=== PATIENT | male | born 2005 | race Caucasian/White ===

== ENCOUNTER 2024-06-13 11:26 | Emergency (ER) | payer BC, SELFPAY ==
--- NOTE | ~2024-06-13 | CT_ITS ---
EXAMINATION: CT abdomen pelvis w con DATE: 06/13/2024 14:23 INDICATION: Abdominal pain TECHNIQUE: Computed tomography (CT) of the abdomen and pelvis was performed with 100 mL Omnipaque-350 intravenous contrast. Automated exposure control and iterative reconstruction technique were employe d. The dose-length product was 326.12 mGy-cm. COMPARISON: None FINDINGS: Lung bases are clear. Heart size normal. No pericardial or pleural effusion. Liver, gallbladder, sple en, pancreas, bilateral adrenal glands and left kidney are normal. There are couple cysts at the lowe r pole the right kidney measuring up to 1.1 cm. Suture line along the tip the cecum likely related to prior appendectomy. No abnormal bowel wall thickening or obstruction. Bladder is normal. No free int raperitoneal gas or fluid. No pathologically enlarged abdominal or pelvic lymphadenopathy. Mild lumba r and lower thoracic spondylosis. IMPRESSION: 1. No acute intra-abdominal/pelvic process. Reviewed, dictated and finalized at location A. ND CRUSHER
[2024-06-13 11:29] VITALS: BP 105/90; PULSE 130; RESP 20; TEMP 36.4; O2SAT 98
[2024-06-13] MEDS: SODIUM CHLORIDE 0.9% IV 1,000 ML 999 ML IV CONT ×2 (11:46→14:29)
[2024-06-13] MEDS: ONDANSETRON INJ 4 MG/2 ML VIAL IV PUSH (11:47)
[2024-06-13] MEDS: FAMOTIDINE 20 MG/2 ML VIAL IV PUSH (11:48)
[2024-06-13] MEDS: DICYCLOMINE HCL INJ 20 MG/2 ML VIAL IM (11:57)
--- NOTE | 2024-06-13 12:06 | ED_ITS ---
HPI - Nausea/Vomiting/Diarrhea General Chief complaint: Nausea/Vomiting/Diarrhea Stated complaint: N/V/D Time Seen by Provider: 06/13/24 11:28 History of Present Illness HPI Narrative: Patient is a 18-year-old male who presents to the ER with nausea, vomiting and diarrhea. He reports the symptoms started last night around midnight. Patient went to urgent care earlier today and they advised him to come here because of his tachycardia. He endorses decreased urine output. Patient reports he has a history of ADHD, appendectomy, and anxiety. He reports he wants to use cannabis regularly but has not used in approximately 3 months. Patient denies chest pain, shortness of breath, recent fevers, urinary symptoms. Related Data Home Medications ?Medication ?Instructions ?Recorded ?Confirmed ?Last Taken ?Type dextroamphetamine-amphetamine 15 15 mg PO DAILY 06/13/24 06/13/24 Unknown History mg tablet (Adderall) Allergies Allergy/AdvReac Type Severity Reaction Status Date / Time No Known Allergies Allergy Verified 06/13/24 11:39 Review of Systems 2 Review of Systems: All systems reviewed & are unremarkable except as noted in HPI and below Exam 2 Narrative: GENERAL: Ill-appearing, well-nourished, non-toxic, in no acute distress. HEAD: Normocephalic, atraumatic. NECK: Supple. No adenopathy, no masses. RESPIRATORY: Airway patent, respirations nonlabored. Clear to auscultation bilaterally, no rales, rhonchi, wheezing. CARDIOVASCULAR: Tachycardia without murmurs, rubs, or gallops. Peripheral pulses 2+ and equal bilaterally. ABDOMINAL: Soft, nontender, nondistended, no hepatosplenomegaly. Normoactive BS. MUSCULOSKELETAL: Moves all extremities. Strength/ROM intact without gross deformities. SKIN: Warm, dry, pallor. No rashes. NEURO: A&O X3. Speech clear. Cranial nerves II-XII grossly intact. Steady gait. No ataxic movements. PSYCHIATRIC: Appropriate mood and affect. Normal interaction. Course Vital Signs Vital signs: Vital Signs Temperature 36.4 C 06/13/24 11:29 Pulse Rate 130 H 06/13/24 11:29 Respiratory Rate 20 06/13/24 11:29 Blood Pressure 105/90 06/13/24 11:29 Pulse Oximetry 98 06/13/24 11:29 Oxygen Delivery Room Air 06/13/24 11:29 Temperature 36.8 C 06/13/24 14:30 Pulse Rate 110 H 06/13/24 14:30 Respiratory Rate 14 06/13/24 14:30 Blood Pressure 119/78 06/13/24 14:30 Pulse Oximetry 100 06/13/24 14:30 Oxygen Delivery Room Air 06/13/24 11:29 MDM - Nausea/Vomiting/Diarrhea MDM Narrative Medical decision making narrative: Patient is a 18-year-old male who presents to the ER with nausea, vomiting and diarrhea. He reports the symptoms started last night around midnight. Patient went to urgent care earlier today and they advised him to come here because of his tachycardia. He endorses decreased urine output. Patient reports he has a history of ADHD, appendectomy, and anxiety. He reports he wants to use cannabis regularly but has not used in approximately 3 months. Patient denies chest pain, shortness of breath, recent fevers, urinary symptoms. Labs Ordered: CBC, CMP, UA, UDS, COVID/flu/RSV, CK, lipase Imaging Ordered: CT abdomen pelvis Results: Patient's abdominal CT scan shows Lung bases are clear. Heart size normal. No pericardial or pleural effusion. Liver, gallbladder, spleen, pancreas, bilateral adrenal glands and left kidney are normal. There are couple cysts at the lower pole the right kidney measuring up to 1.1 cm. Suture line along the tip the cecum likely related to prior appendectomy. No abnormal bowel wall thickening or obstruction. Bladder is normal. No free intraperitoneal gas or fluid. No pathologically enlarged abdominal or pelvic lymphadenopathy. Mild lumbar and lower thoracic spondylosis. Medications ordered: Bentyl, Pepcid, 2L normal saline IV bolus, Zofran Diagnosis: Gastroenteritis, dehydration Patient Education/Shared MDM: Results shared with patient. Patient endorses significant relief following medication administration. Strict return precautions were given to patient. Patient will be discharged with prescription for Bentyl and Zofran. He will be strongly encouraged to maintain an adequate hydration status upon discharge. Patient and his significant other her eyes understanding and are in agreement with plan. Differential Diagnosis Differential diagnosis: Likely food poisoning, gastroenteritis, drug-induced nausea and vomiting and dehydration Lab Data Attestation: I reviewed the patient's lab results. 06/13/24 12:01 06/13/24 12:01 Labs: Lab Results 06/13/24 06/13/24 Range/Units 12:01 12:10 WBC 18.4 H (4.5-10.0) K/mm3 RBC 5.19 (4.6-6.20) M/mm3 Hgb 16.7 (14.0-18.0) g/dL Hct 47.3 (42.0-52.0) % MCV 91.1 (80-100) fl MCH 32.2 (26-34) pg MCHC 35.3 (32-36) g/dl RDW 12.0 (11.5-14.5) % Plt Count 257 (150-375) k/mm3 MPV 10.1 (7.4-10.4) fl Immature Gran % (Auto) 0.4 (0-0.5) % Neut % (Auto) 87.0 H (45.5-73.1) % Lymph % (Auto) 2.0 L (18.3-44.2) % [place] % (Auto) 3.3 (2.6-8.5) % Eos % (Auto) 7.1 H (0-4.4) % Baso % (Auto) 0.2 (0.2-1.2) % Lymph # (Auto) 0.37 L (0.9-3.2) K/mm3 [place] # (Auto) 0.6 (0.1-0.6) K/mm3 Eos # (Auto) 1.3 H (0-0.3) K/mm3 Baso # (Auto) 0.0 (0.0-0.1) K/mm3 Abs Immat Gran (auto) 0.07 H (0.00-0.031) K/mm3 Absolute Neuts (auto) 16.0 H (1.3-6.7) K/mm3 Absolute Nucleated RBC 0.000 (0.0-0.012) K/mm3 Nucleated RBC % 0.0 (0.0-0.2) % Platelet Estimate Adequate (Adequate) Schistocytes None seen Sodium 144 (137-145) mmol/L Potassium 4.0 (3.4-5.0) mmol/L Chloride 108 H (98-107) mmol/L Carbon Dioxide 16 L (22-30) mmol/L Anion Gap 20 H (4-12) mmol/L BUN 15 (9-20) mg/dL Creatinine 0.90 (0.7-1.3) mg/dL Estim Creat Clear Calc 126 ml/min Estimated GFR > 60 (59 - ) Glucose 151 H (65-110) mg/dL Calcium 9.6 (8.4-10.2) mg/dL Total Bilirubin 1.5 H (0.2-1.3) mg/dL AST 25 (17-59) U/L ALT 28 (6-50) U/L Alkaline Phosphatase 107 (38-126) U/L Total Creatine Kinase 86 (55-170) U/L Total Protein 8.0 (6.3-8.2) g/dL Albumin 5.1 (3.5-5.1) g/dL Lipase 42 (23-300) U/L Urine Color Dark yellow (Yellow) Urine Appearance Turbid H (Clear) Urine pH 6.0 (5.0-9.0) Ur Specific [place] 1.034 (1.001-1.035) Urine Protein 2+ H (Negative) mg/dL Urine Glucose (UA) Negative (Negative) mg/dL Urine Ketones 1+ H (Negative) mg/dL Ur Blood (Man) Negative (Negative) Urine Nitrate Negative (Negative) Urine Bilirubin 1+ H (Negative) Urine Urobilinogen 1.0 (<2.0) mg/dL Leukocyte Esterase Rfl Trace H (Negative) JAS/UL Urine RBC 0-2 (0-2) /hpf Urine WBC 0-5 (0-3) /hpf Ur Squamous Epith Cells None seen (Few) /hpf Urine Bacteria None seen /hpf Urine Casts 3-5 Urine Opiates Screen Negative (Negative) Urine Methadone Screen Negative (Negative) Ur Barbiturates Screen Negative (Negative) Ur Phencyclidine Scrn Negative (Negative) Ur Amphetamine Screen Negative (Negative) U Benzodiazepines Scrn Negative (Negative) Urine Cocaine Screen Negative (Negative) U Cannabinoids Screen Positive A (Negative) Influenza A (RT-PCR) Negative (Negative) Influenza B (RT-PCR) Negative (Negative) RSV (RT-PCR) Negative (Negative) SARS-CoV-2 RNA (RT-PCR) Negative (Negative) Imaging Data Attestation: I personally reviewed and interpreted this imaging study as follows: Radiologist's impression: Impressions Abdomen/Pelvis CT 06/13/24 14:26 IMPRESSION: 1. No acute intra-abdominal/pelvic process. Discharge Plan Discharge Clinical Impression: Gastroenteritis, Dehydration Patient Disposition: Home, Self-Care Condition: Stable Instructions: Antibiotic Form, Dehydration (ED), Acute Nausea and Vomiting (ED) Additional Instructions: Please return to the ER with an worsening symptoms. Follow-up with primary care provider in the next 2-3 days. Take all medications as prescribed. Patient Language: Pashto Prescriptions: New dicyclomine 10 mg capsule 10 mg PO QID Qty: 14 0RF ondansetron 4 mg tablet,disintegrating 4 mg PO Q8H PRN (Reason: nausea and vomiting) Qty: 10 0RF No Action dextroamphetamine-amphetamine [Adderall] 15 mg tablet 15 mg PO DAILY Follow-up/Referrals: PHYSICIAN NOT ON STAFF,NONSTAFF [Non-Staff] - Time of Disposition: 14:47
--- NOTE | 2024-06-13 12:06 | ECG_ITS ---
Test Date: 2024-06-13 12:23:07 Measurements Intervals [place] Rate: 111 P: 65 WI: 135 QRS: 66 QRSD: 92 T: 35 QT: 310 QTc: 422 Interpretive Statements SINUS TACHYCARDIA ABNORMAL RHYTHM ECG No previous ECG available for comparison Electronically Signed On 06-13-2024 18:02:12 [employer] DEPARTMENT CHAIR by Dalia Fontaine M.D.
[2024-06-13 12:10] LABS: Basophils Percent Auto 0.2 % (0.2-1.2); Eosinophils Absolute Auto 1.3 K/mm3 (0-0.3); Eosinophils Percent Auto 7.1 % (0-4.4); Hematocrit 47.3 % (42.0-52.0); Hemoglobin 16.7 g/dL (14.0-18.0); Immature Granulocyte Absolute 0.07 K/mm3 (0.00-0.031); Immature Granulocyte Percent A 0.4 % (0-0.5); Lymphocytes Absolute Auto 0.37 K/mm3 (0.9-3.2); Mean Corpuscular HGB Conc 35.3 g/dl (32-36); Mean Corpuscular Hemoglobin 32.2 pg (26-34); Mean Corpuscular Volume 91.1 fl (80-100); Mean Platelet Volume 10.1 fl (7.4-10.4); Monocytes Absolute Auto 0.6 K/mm3 (0.1-0.6); Monocytes Percent Auto 3.3 % (2.6-8.5); Platelet Count Result 257 k/mm3 (150-375); Red Blood Count 5.19 M/mm3 (4.6-6.20); White Blood Count 18.4 K/mm3 (4.5-10.0)
[2024-06-13 12:18] LABS: Alanine Aminotransferase 28 U/L (6-50); Albumin Level 5.1 g/dL (3.5-5.1); Alkaline Phosphatase 107 U/L (38-126); Anion Gap 20 mmol/L (4-12); Aspartate Amino Transferase 25 U/L (17-59); Bilirubin,Total 1.5 mg/dL (0.2-1.3); Blood Urea Nitrogen 15 mg/dL (9-20); Calcium 9.6 mg/dL (8.4-10.2); Carbon Dioxide 16 mmol/L (22-30); Chloride 108 mmol/L (98-107); Estimated CRCL calculation 126 ml/min; Estimated Glomerular Filt Rate > 60; Glucose 151 mg/dL (65-110); Lipase 42 U/L (23-300); Sodium 144 mmol/L (137-145)
[2024-06-13 12:22] LABS: Add Urine Microscopic? YES; Appearance Urine Turbid (Clear); Bacteria Urine None Seen /hpf; Bilirubin Urine 1+ (Negative); Blood Urine Negative (Negative); Color Urine Dark Yellow (Yellow); Glucose Urine UA Negative (Negative); Ketones Urine 1+ mg/dL (Negative); Leukocyte Esterase Ur Trace LEU/UL (Negative); Nitrate Urine Negative (Negative); Protein Urine 2+ mg/dL (Negative); RBC Urine 0-2 /hpf (0-2); Specific Grav Ur 1.034 (1.001-1.035); Squamous Epithelial Cell Urine None Seen /hpf (Few); WBC Urine 0-5 /hpf (0-3)
[2024-06-13 12:33] LABS: Platelet Estimate Adequate (Adequate); Schistocytes None Seen
[2024-06-13 12:39] LABS: Amphetamine Screen Urine Negative (Negative); Barbiturate Screen Urine Negative (Negative); Benzodiazepines Screen Urine Negative (Negative); Cannabinoid Screen Urine Positive (Negative); Cocaine Screen Urine Negative (Negative); Methadone Screen Urine Negative (Negative); Opiate Screen Urine Negative (Negative); Phencyclidine Screen Urine Negative (Negative)
[2024-06-13 12:44] LABS: Influenza A QL RT-PCR Negative (Negative); Influenza B QL RT-PCR Negative (Negative); RSV RNA, RT-PCR Negative (Negative); SARS-CoV-2 RNA PCR Negative (Negative)
[2024-06-13 14:15] LABS: Creatine Kinase 86 U/L (55-170)
[2024-06-13 14:30] VITALS: BP 119/78; PULSE 110; RESP 14; TEMP 36.8; O2SAT 100
--- OUTSIDE RECORDS SUMMARY | 2024-06-16 13:08 | XMS_ITS | Clinical Summary ---
Author Organization [facility] Address [address] [place] [address] Care Team Providers Care Strainer Tender Name Role Phone Oneyda Marc MD Unavailable [phone] Robert Holman MD Primary Care Provider [phone] Robert Holman MD Unavailable [phone] Source Comments [facility],non-[facility] Affiliates and Associated Physician Practices is amultiple site organization consisting of ambulatory clinics and hospital sitesin [place], [place], [place] and [place]. This disclosure is being madepursuant to the Care Everywhere program and may not contain all information available regarding this patient. Last updated 18.[facility] [employer] Allergies No known active allergies Medications * Be aware that medications may not be up to date on this document. Alwaysverify current medications with the patient. Medication Sig Dispensed Refills Start Date End Date Status escitalopram (Lexapro) 10 MG tablet TAKE 1 TABLET BY MOUTH DAILY 90 tablet 1 4 Active escitalopram (Lexapro) 5 MG tablet TAKE 1 TABLET BY MOUTH DAILY FOR MAJOR DEPRESSION 90 tablet 1 4 Active amphetamine-dextr oamphetamine XR 24hr (Adderall XR) 15 MG capsuleIndication s:Attention deficit hyperactivity disorder (ADHD), combined type Take 1 (one) capsule by mouth every morning 30 capsule 5 Active hydrOXYzine HCl (Atarax) 25 MG tablet TAKE 1 TABLET BY MOUTH 3 TIMES DAILY NEEDED FOR ANXIETY 270 tablet 3 5 Active hydrOXYzine HCl (Atarax) 25 MG tabletIndications :Anxiety Take 1 (one) tablet by mouth 3 times daily as needed Reasons: Feeling Anxious 270 tablet 3 3 06/03/19 25 Discontinued amphetamine-dextr oamphetamine XR 24hr (Adderall XR) 15 MG capsuleIndication s:Attention deficit hyperactivity disorder (ADHD), combined type Take 1 (one) capsule by mouth every morning 30 capsule 4 05/30/19 25 Discontinued(Svetlana ashraf) Active Problems Problem Noted Date Diagnosed Date MDD (major depressive disord er), recurrent episode, moderate 10/30/2022 Assessment & Plan (01/04/2024 3:25 PM CDT): Currently at goal on Lexapro, continue Lexapro Marijuana use 10/30/2022 Assessment & Plan (01/04/2024 3:26 PM CDT): Continue to monitor. Assessment & Plan (10/30/2022 10:32 AM CDT): Occasional marijuana use, continue to monitor. Nicotine dependence due to vaping tobacco produc t 10/30/2022 Assessment & Plan (10/30/2022 10:34 AM CDT): CURRENT USE: Current everyday vape use COMPLICATIONS: None currently CURRENT MEDICATIONS (IF APPLICABLE) AND PLAN: No medication, discussed importance of cutting back and discussed tapering down. GENERAL SUGGESTIONS FOR HOW TO TAPER & WEAN OFF VAPES (replace cigarettes and smoking with appropriate vaping terms): 1. Pick a goal Quit Day, it can be all at once or a slow taper 2. If you plan to taper, count out daily cigarettes in the AM and reduce by one cigarette per day every 3-5 days 3. You will know soon what cigarettes are the most important during the day, cut these out last 4. Stop smoking the whole cigarette, smoke only half of it when able 5. Only smoke outside and put cigarettes someplace far away so it is more effort to go and smoke, you will smoke less if they are harder to get to 6. Consider buying cigarettes that you do not like as much, you will smoke fewer of them 7. Part of stopping is the oral component to the cigarette use, when craving try gum or a hard candy, if this does not seem to help you may need nicotine gum or a lozenge 8. For some patients, it may be beneficial to trial a medication such as Chantix if tapering cigarettes or nicotine replacement is not enough. RESOURCES: - [place] [employer] Quitline - Phone: 1(332) QUIT-NOW [ ] - Website: https://www.SovexnoZurn.net/mve/quitnow?qnclient=[place] FOLLOW-UP: Next visit Between 3 minutes and 10 minutes was spent counseling patient regarding tobacco cessation as detailed above. ([id number]) Wellness examination 10/30/2022 Assessment & Plan (01/04/2024 3:25 PM CDT): Teresa is a well appearing 18 year old male who presents today for a wellness exam: BMI >30? No, BMI is Body mass index is 25.90 kg/m??. TdaP: Up-to-date If smoker, asthma, COPD, DM then Pneumovax 23: N/A Cholesterol screening: Ordered today Hep C screening: Hepatitis C Antibody Date Value Ref Range Status 10/30/2022 Non Reactive Non Reactive Final Comment: Non Reactive - Antibodies to Hepatitis C virus (HCV) were no t detected, result does not exclude early acute HCV infection. FASTING Depression screening: Normal, screen annually Smoking Status: Current everyday vape use Alcohol Use: Does not abuse Assessment & Plan (10/30/2022 10:31 AM CDT): Teresa is a well appearing 16 year old male who presents today for a wellness exam: BMI >30? No, BMI is Body mass index is 26.34 kg/m??. TdaP: Up-to-date If smoker, asthma, COPD, DM then Pneumovax 23: N/A Cholesterol screening: Recent Labs Component Name 03/04/19 1629 HDL 44 LDL 75 Ordered today Hep C screening: No results found for: HCV Depression screening: Normal, screen annually Smoking Status: Current everyday vape use Alcohol Use: Does not abuse Impulse control disorder 06/27/2019 Generalized anxiety disorder 06/27/2019 Assessment & Plan (01/04/2024 3:26 PM CDT): Currently at goal on Lexapro Assessment & Plan (10/30/2022 10:32 AM CDT): STATUS: stable MEDICATION CHANGES: None today NEW/CURRENT MEDICATIONS: Hydroxyzine 25 mg as needed up to 3 times per day and Escitalopram (Lexapro) 15 mg daily TIPS TO IMPROVE ANXIETY SYMPTOMS: - Exercise is a great way to reduce anxiety related symptoms. The current recommendation by most medical payment poster is 30 minutes per day 5 days per week. However, any exercise will make a big difference! - If not participating already, I highly recommend counseling as a way to help work through your anxiety. There are both in-person and online options available. - Avoid/limit alcohol and caffeine consumption as they can be triggers for some people - STOP SMOKING! Nicotine significantly worsens anxiety - Avoid use of recreational drugs - Both guided and unguided meditation has been shown to reduce anxiety symptoms. There are multiple resources/videos/apps online and on most X[employer]ia phones. The [employer] jennie is a personal favorite of mine along with many free meditation videos on [employer] - Eat healthy, I recommend modeling your diet around the Mediterranean Diet - Get plenty of rest. Anxiety worsens when you are sleep deprived. - Keep a journal and identify triggers. Once you identify them try to understand why these triggers elicit an anxious response. This process goes well with counseling! - Socialize with those who make you happy! Don't let your anxiety isolate you from loved ones or activities you enjoy. - Finally, don't be too hard on yourself. It's easy to get frustrated when you have worsening or a relapse of symptoms. Understand that anxiety takes time to improve and waxes/wanes during that time. Keep the end goal in site and learn from your experiences (both positive and negative). FOLLOW-UP: Next visit Acne vulgaris 07/04/2017 Overview (07/09/2017): [facility] Attention deficit hyperactiv ity disorder (ADHD), combined type 07/22/2010 Assessment & Plan (01/04/2024 3:26 PM CDT): Not at goal, restarted patient on Adderall. Follow-up a few months for recheck. Assessment & Plan (10/30/2022 10:33 AM CDT): Previously on medication for this. Patient will be starting school in the near future and may want to get back on the medication. He will schedule follow-up to discuss this. Resolved Problems Problem Noted Date Diagnosed Date Resolved Date Molluscum contagiosum 07/04/20172022 Overview (07/09/2017): [facility] Acute sinusitis 06/22/2012 10/30/2022 Overview (06/22/2012): 06/22/12 Attention deficit hyperactiv ity disorder (ADHD) 04/23/2010 02/09/2015 Overview (04/01/2015): Strep pharyngitis 04/17/2010 10/30/2022 Overview (02/08/2018): 04/17/10,08/09/12,05/13/13,02/06/18 seen in urgent care Acute otitis media, right 11/19/2009 ACUTE OTITIS MEDIA, 06/27/2009 10/31/19 23 Overview (07/22/2010): 11/16/09 right, 07/21/10 RAD (reactive airway disease) 06/27/2009 12/31/2020 Rhinorrhea 04/23/2009 02/09/2015 Injury, other and unspecified, finger 10/08/2008 02/09/2015 Anxiety 10/30/2022 Encounters Date Type Department Care Team Description 06/03/[address] [place] [address] Robert Holman MD Refill Request 05/30/[address] [address] Robert Holman MD MEDICATION REFILL from Last 3 Months Immunizations Name Administration Dates Next Due Covid Moderna primary monova lent 12+ yr 0.5mL 09/13/2020,08/16/2020 DTAP/IPV 08/23/2009 DTaP VACCINE IM (6wk-6yrs) 03/07/2005,,04/10/2004,01/31 FLU VACCINE TRI IIV3 SPLIT P F IM (FLUVIRIN) 01/31/2013 HEP A PEDS 2 DOSE 08/23/2009,12/01/2005 HEP B VACCINE, PED/ADOL 03/07/2005,04/10/2004, HIB BOOSTER 03/07/2005,04/10/2004,02/01/2004 Human Papilloma Virus Nineva lent Vaccine 04/07/2016 Human Papilloma Virus Dimas valent Vaccine 02/09/2015 INFLUENZA VACCINE 04/04/2005,03/07/2005 INFLUENZA VACCINE, QUADR. (F LUZONE; FLULAVAL; FLUARIX; AFLURIA QUADRIVALENT; 6MO+), 0.5 ML (IIV4) 05/05/2022,03/31/2020,03/04/2019,05/28,04/07/2016 Influenza Nasal 02/17/2011 MENINGOCOCCAL B RECOMBINANT, 2 OR 3 DOSE, IM 12/31/2020,12/23/2019 MENINGOCOCCAL CONJUGATE (MCV4P) 12/23/2019,02/09 MMR 08/23/2009,12/20/2004 PNEUMOCOCCAL CONJ, PEDS 03/07/2005,06/10,04/10/2004,09/09 /2004 POLIO IPV 06/10/2004,04/10/2004,02/01/2004 TDAP (7yrs+) 02/09/2015 VARICELLA 08/23/2009,12/20/2004 Social History Tobacco Use Types Packs/Day Years Used Date Smoking Tobacco: Never Smokeless Tobacco: Never Tobacco Cessation:Counseling Given: Not Answered Alcohol Use Standard Drinks/Week Comments Yes 12 (1 standard drink = 0.6 oz pu re alcohol) Occ PHQ-2 Answer Date Recorded Patient Health Questionnaire-2 Score 0 01/04/2024 Sex and Gender Information Value Date Recorded Sex Assigned at Male 10/30/2022 10:05 AM CDT Gender Identity Not on file Sexual Orientation Not on file Last Filed Vital Signs Vital Sign Reading Time Taken Comments Blood Pressure 108/72 01/04/2024 2:46 PM CDT Pulse 69 01/04/2024 2:46 PM CDT Temperature 36.9 ??C (98.4 ??F) 12/31/2020 3:01 PM CD T Respiratory Rate 14 10/30/2022 10:15 AM CDT Oxygen Saturation 99% 01/04/2024 2:46 PM CDT Inhaled Oxygen Concentration - - Weight 86.6 kg (191 lb) 01/04/2024 2:46 PM CDT Height 182.9 cm (6') 01/04/2024 2:46 PM CDT Body Mass Index 25.9 01/04/2024 2:46 PM CDT Plan of Treatment Upcoming Encounters Date Type Department Care Team (Late st Contact Info) Description 07/06/2024 2:40 PM CUSTOMS COMPLIANCE MANAGER Office Visit [facility] [address] [place] [address] Robert Holman MD [address] [place] [address] Health Maintenance Due Date Last Done Comments COVID-19 VACCINE (2023-2 5 season) 2024 09/13/2020, 08/16/2020 INFLUENZA VACCINE (#1) 2024 2, 03/31/2020, 03/04/2019, Additional history exists DEPRESSION SCREENING 05/25/2024 01/04/2024, 10/31/19 23 DTAP/TDAP/TD VACCINES (7 - T d or Tdap) 02/09/2025 02/09/2015, 08/23/2009, 03/07/2005, Additional history exists ZOSTER VACCINE (1 of 2) 12/01/2053 HEPATITIS B VACCINE Completed 03/07/2005, 04/10/2004, 02/01/2004 HIB VACCINE Completed 03/07/2005, 03/25, 02/01/2004 PNEUMOCOCCAL VACCINE Completed 03/07/2005, 06/10/2004, 04/10/2004, Additional history exists HPV VACCINE Completed 04/07/2016, 02/09/2015 MENINGOCOCCAL VACCINE Completed 12/23/2019, 015 MENINGOCOCCAL (Group B) VACCINE Completed , 12/23/2019 HEPATITIS C SCREENING Completed 10/30/2022 HIV SCREENING Completed 10/30/2022 Goals Goal Patient Goal Type Associated Problems Recent Progress Patient-Stated? Author Use safety retraint in car Lifestyle On track( 021 3:03 PM CDT) No Jessica Delgado MA Procedures Procedure Name Priority Date/Time Associated Diagnosis Comments HEPATITIS C ANTIBODY Routine 10/30/2022 10:57 AM CDT Wellness examination HIV-1 HIV-2 ANTIBODY + HIV P24 AG PANEL Routine 10/30/2022 10:57 AM CDT Wellness examination from Last 3 Months or Most Recently Relevant to Health Maintenance Results * HIV-1 HIV-2 ANTIBODY + HIV P24 AG PANEL (10/30/2022 10:57 AM CDT) HIV Screen 4th Generation w Reflex Non Reactive Non Reactive [facility] ACCOUNT BILL Comment: HIV Negative HIV-1/HIV-2 antibodies and HIV-1 p24 antigen were NOT detected. There is no laboratory evidence of HIV infection. FASTING Blood BLOOD SPECIMEN / Unknown 10/30/2022 10:57 AM CDT 10/30/2022 Narrative Resulting Agency Comment Lab Testing performed at: [facility] ??[facility] [id number] Robert Holman MD LAB - CHEMISTRY ORD ERABLES [facility] ACCOUNT BILL [address] [place] [address] * HEPATITIS C ANTIBODY (10/30/2022 10:57 AM CDT) Hepatitis C Antibody Non Reactive Non Reactive [facility] ACCOUNT BILL Comment: Non Reactive - Antibodies to Hepatitis C virus (HCV) were no t detected, result does not exclude early acute HCV infection. FASTING Blood BLOOD SPECIMEN / Unknown 10/30/2022 10:57 AM CDT 10/30/2022 Narrative Resulting Agency Comment Lab Testing performed at: [address] ??[facility] [phone] Robert Holman MD LAB - CHEMISTRY ORD ERABLES [facility] ACCOUNT BILL [address] [place] [address] from Last 3 Months or Most Recently Relevant to Health Maintenance Additional Health Concerns Infection Onset Date Last Indicated MRSA 04/12/2009 04/12/2009 Care Teams Strainer Tender Relationship Specialty Start Date End Date Robert Holman MD [address] [place] [address] PCP - General Family Medicine 10/30/22 Robert Holman MD [address] [place] [address] PCP - [facility] 12/23/22 Oneyda Marc MD [address] [place] [id number] Pediatrics 10/03/21
--- OUTSIDE RECORDS SUMMARY | 2024-06-16 13:08 | XMS_ITS | Referral Summary ---
Author Organization [facility] Address [address] [place] [address] Care Team Providers Care President And Chief Executive Officer Name Role Phone Oneyda Marc MD Unavailable [phone] Robert Holman MD Primary Care Provider [phone] Robert Holman MD Unavailable [phone] Source Comments [facility] Affiliates and Associated Physician Practices is amultiple site organization consisting of ambulatory clinics and hospital sitesin [place], [place], [place] and [place]. This disclosure is being madepursuant to the Care Everywhere program and may not contain all information available regarding this patient. Last updated 18.[facility] Encounters Date Type Department Care Team Description 06/03/2024 Refill [facility] - Family Medicine [address] [place] [phone] Robert Holman MD Refill Request 05/30/2024 Refill [facility] - Family Medicine [address] [facility] [place] [phone] Robert Holman MD MEDICATION REFILL from Last 3 Months Allergies No known active allergies Medications * [...] every morning 30 capsule 4 05/30/19 25 Discontinued(Reo rddomingo) Active Problems Problem Noted Date Diagnosed Date [...] nicotine replacement is not enough. RESOURCES: - [place] Tobacco [employer]uit[employer] - Phone: [phone]) QUIT-NOW [ ] - Website: https://www.quitnow.net/mve/quitnow?qnclient=[place] FOLLOW-UP: Next visit Between 3 minutes and 10 minutes was spent counseling patient regarding tobacco cessation as detailed above. ([id number]) Wellness examination 10/30/2022 Assessment & Plan (01/04/2024 [...] related symptoms. The current recommendation by most outside medical sales representative is 30 minutes per day 5 days [...] are multiple resources/videos/apps online and on most smart phones. The [employer] jennie is a personal favorite of mine along with many free meditation videos on Twitter - Eat healthy, I recommend modeling your [...] Next visit Acne vulgaris 07/04/2017 Overview (07/09/2017): [facility] Attention deficit hyperactiv ity disorder (ADHD), [...] Resolved Date Molluscum contagiosum 07/04/20172022 Overview (07/09/2017): [facility] Acute sinusitis 06/22/2012 10/30/2022 Overview (06/22/2012): 06/22/12 Attention deficit hyperactiv ity disorder (ADHD) 04/23/2010 02/09/2015 Overview (04/01/2015): Strep pharyngitis 04/17/2010 10/30/2022 Overview (02/08/2018): 04/17/10,08/09/12,05/13/13,02/06/18 seen in urgent care Acute otitis media, right 11/19/2009 ACUTE OTITIS MEDIA, 06/27/2009 10/31/19 23 Overview (07/22/2010): 11/16/09 right, 07/21/10 RAD (reactive airway disease) 06/27/2009 12/31/2020 Rhinorrhea 04/23/2009 02/09/2015 Injury, other and unspecified, finger 10/08/2008 02/09/2015 Anxiety 10/30/2022 Immunizations Name Administration Dates Next Due Covid [...] st Contact Info) Description 07/06/2024 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 [place] [phone] Robert Holman MD [address] [place] [address] Goals Goal Patient Goal Type Associated Problems [...] Resulting Agency Comment Lab Testing performed at: [facility] [address] ??[facility] [id number] Robert Holman MD LAB - CHEMISTRY ORD ERABLES Performing Organization Address City/[facility] Co de Phone Number [facility] ACCOUNT BILL [address] [place] [address] * HEPATITIS C ANTIBODY (10/30/2022 10:57 AM CDT) Hepatitis C Antibody Non Reactive Non Reactive [facility] ACCOUNT BILL Comment: Non Reactive - Antibodies to Hepatitis C virus (HCV) were no t detected, result does not exclude early acute HCV infection. FASTING Blood BLOOD SPECIMEN / Unknown 10/30/2022 10:57 AM CDT 10/30/2022 Narrative Resulting Agency Comment Lab Testing performed at: [facility] [address] [place] [address] ??[facility] [id number] Robert Holman MD LAB - CHEMISTRY ORD ERABLES Performing Organization Address City/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 [facility] [address] [place] [address] Pediatrics 10/03/21
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
--- OUTSIDE RECORDS SUMMARY | 2024-06-16 13:09 | XMS_ITS | Patient Health Summary ---
Author Organization [facility] Address [address] [place] [address] Care Team Providers Care Ticket Machine Operator Name Role Phone Oneyda Marc MD Unavailable [phone] Robert Holman MD Primary Care Provider Robert Holman MD Unavailable [phone] Note from [facility],non-owned Affiliates and Associated Physician Practices is amultiple site organization consisting of ambulatory clinics and hospital sitesin [place], [place], [place] and [place]. This disclosure is being madepursuant to the Care Everywhere program and may not contain all information available regarding this patient. Last updated 18.[facility] Allergies No known active allergies Medications * Be aware that medications may not be up to date on this document. Alwaysverify current medications with the patient. * escitalopram (Lexapro) 10 MG tablet(Started 02/16/2024) TAKE 1 TABLET BY MOUTH DAILY 1 refill by 02/15/2025 * escitalopram (Lexapro) 5 MG tablet(Started 02/16/2024) TAKE 1 TABLET BY MOUTH DAILY FOR MAJOR DEPRESSION 1 refill by 02/15/2025 * amphetamine-dextroamphetamine XR 24hr (Adderall XR) 15 MG capsule(Started 05/31/2024) Take 1 (one) capsule by mouth every morning * hydrOXYzine HCl (Atarax) 25 MG tablet(Started 06/03/2024) TAKE 1 TABLET BY MOUTH 3 TIMES DAILY NEEDED FOR ANXIETY 3 refills by 06/03/2025 Ended Medications* hydrOXYzine HCl (Atarax) 25 MG tablet(Started 02/27/2023) (Discontinued) Take 1 (one) tablet by mouth 3 times daily as needed Reasons: Feeling Anxious 3 refills by 02/27/2024 * amphetamine-dextroamphetamine XR 24hr (Adderall XR) 15 MG capsule(Started 03/09/2024)(Discontinued) Take 1 (one) capsule by mouth every morning Active Problems Problem Noted Date Diagnosed Date MDD (major depressive disord er), recurrent episode, moderate 10/30/2022 Marijuana use 10/30/2022 Nicotine dependence due to vaping tobacco produc t 10/30/2022 Wellness examination 10/30/2022 Impulse control disorder 06/27/2019 Generalized anxiety disorder 06/27/2019 Acne vulgaris 07/04/2017 Attention deficit hyperactiv ity disorder (ADHD), combined type 07/22/2010 Resolved Problems Problem Noted Date Diagnosed Date Resolved Date Molluscum contagiosum 07/04/20172022 Acute sinusitis 06/22/2012 10/30/2022 Attention deficit hyperactiv ity disorder (ADHD) 04/23/2010 02/09/2015 Strep pharyngitis 04/17/2010 10/30/2022 Acute otitis media, right 11/19/2009 ACUTE OTITIS MEDIA, 06/27/2009 10/31/19 23 RAD (reactive airway disease) 06/27/2009 12/31/2020 Rhinorrhea 04/23/2009 02/09/2015 Injury, other and unspecified, finger 10/08/2008 02/09/2015 Anxiety 10/30/2022 Immunizations * Covid Moderna primary monovalent 12+ yr 0.5mL(Given 09/13/2020, 08/16/2020) * DTAP/IPV(Given 08/23/2009) * DTaP VACCINE IM (6wk-6yrs)(Given 03/07/2005, 06/10/2004, 04/10/2004, 02/01/2004) * FLU VACCINE TRI IIV3 SPLIT PF IM (FLUVIRIN)(Given 01/31/2013) * HEP A PEDS 2 DOSE(Given 08/23/2009, 12/01/2005) * HEP B VACCINE, PED/ADOL(Given 03/07/2005, 04/10/2004, 02/01/2004) * HIB BOOSTER(Given 03/07/2005, 04/10/2004, 02/01/2004) * Human Papilloma Virus Ninevalent Vaccine(Given 04/07/2016) * Human Papilloma Virus Quadrivalent Vaccine(Given 02/09/2015) * INFLUENZA VACCINE(Given 04/04/2005, 03/07/2005) * INFLUENZA VACCINE, QUADR. (FLUZONE; FLULAVAL; FLUARIX; AFLURIA QUADRIVALENT; 6MO+), 0.5 ML (IIV4)(Given 05/05/2022, 03/31/2020, 03/04/2019, 05/28/2017, 04/07/2016) * Influenza Nasal(Given 02/17/2011) * MENINGOCOCCAL B RECOMBINANT, 2 OR 3 DOSE, IM(Given 12/31/2020, 12/23/2019) * MENINGOCOCCAL CONJUGATE (MCV4P)(Given 12/23/2019, 02/09/2015) * MMR(Given 08/23/2009, 12/20/2004) * PNEUMOCOCCAL CONJ, PEDS(Given 03/07/2005, 06/10/2004, 04/10/2004, 02/01/2004) * POLIO IPV(Given 06/10/2004, 04/10/2004, 02/01/2004) * TDAP (7yrs+)(Given 02/09/2015) * VARICELLA(Given 08/23/2009, 12/20/2004) Social History Tobacco Use Types Packs/Day Years [...] Mass Index 25.9 01/04/2024 2:46 PM CDT Procedures * TSH HI LOW REFLEX FREE T4(Performed 01/04/2024) Performed for Wellness examination * LIPID PROFILE(Performed 01/04/2024) Performed for Wellness examination * COMPREHENSIVE METABOLIC PANEL(Performed 01/04/2024) Performed for Wellness examination * CBC W AUTO DIFFERENTIAL(Performed 01/04/2024) Performed for Wellness examination * HIV-1 HIV-2 ANTIBODY + HIV P24 AG PANEL(Performed 10/30/2022) Performed for Wellness examination * HEPATITIS C ANTIBODY(Performed 10/30/2022) Performed for Wellness examination * TSH(Performed 10/30/2022) Performed for Wellness examination * LIPID PROFILE(Performed 10/30/2022) Performed for Wellness examination * COMPREHENSIVE METABOLIC PANEL(Performed 10/30/2022) Performed for Wellness examination * CBC W AUTO DIFFERENTIAL(Performed 10/30/2022) Performed for Wellness examination * SARS-COV-2 (COVID-19) IN HOUSE(Performed 04/13/2020) Performed for Cough * SARS-COV2 (COVID-19) PANEL (STL)(Performed 04/13/2020) Performed for Cough * LIPID PROFILE+GLUCOSE - POINT OF CARE (AMB)(Performed 03/04/2019) Performed for Lipid screening * STREP A SCREEN - POCT (IP) URGENT CARE(Performed 02/06/2018) Performed for Strep pharyngitis * STREP A SCREEN DIRECT W RFLX STREP A CULTURE(Performed 05/13/2013) Performed for Sore throat * STREP A SCREEN DIRECT W RFLX STREP A CULTURE(Performed 08/09/2012) Performed for Sore throat * XR FOREARM LEFT 2VW OR MORE(Performed 03/13/2012) Performed for Injury, other and unspecified, elbow, forearm, and wrist * XR FOREARM RIGHT 2VW OR MORE(Performed 03/13/2012) Performed for Injury, other and unspecified, elbow, forearm, and wrist * CULTURE MRSA(Performed 11/17/2011) * PATHOLOGY/CYTOLOGY REPORT ORDER(Performed 11/08/2011) * CULTURE MRSA(Performed 11/04/2011) * LAPAROSCOPIC APPENDECTOMY (PEDIATRIC)(Performed 11/04/2011) Performed for APPENDICITIS * PATHOLOGY TISSUE EXAM (STL)(Performed 11/03/2011) Performed for Appendicitis * US ABDOMEN LIMITED(Performed 11/03/2011) Performed for Abdominal pain, unspecified site * STREP A SCREEN DIRECT W RFLX STREP A CULTURE(Performed 11/02/2011) * CULTURE STREP GROUP A(Performed 11/02/2011) * CBC W AUTO DIFFERENTIAL(Performed 11/02/2011) * DIFFERENTIAL MANUAL(Performed 11/02/2011) * CULTURE STREP GROUP A(Performed 04/15/2010) Performed for Acute pharyngitis * XR FINGER(S) LEFT(Performed 10/08/2008) Performed for Fracture of Finger Results * TSH HI LOW REFLEX FREE T4 (01/04/2024 3:48 PM CDT) TSH 1.100 0.350 - 4.940 uIU/mL [facility] ACCOUNT BILL Blood BLOOD SPECIMEN / Unknown 01/04/2024 3:48 PM CDT 01/04/2024 Narrative Resulting Agency Comment Lab Testing performed at: [place] [id number] [facility] ?? [place] [phone] Robert Holman MD LAB - CHEMISTRY ORD ERABLES [facility] ACCOUNT BILL [address] [place] [address] * (ABNORMAL) CBC WITH DIFFERENTIAL (01/04/2024 3:48 PM CDT) Only the most recent of3 resultswithin the time period is included. WBC 7.4 4.0 - 10.7 x10E9/L [facility] ACCOUNT BILL RBC 4.29(L) 4.30 - 5.80 x10E12/L [facility] ACCOUNT BILL Hemoglobin 13.7 13.3 - 17.5 g/dL [facility] ACCOUNT BILL Hematocrit 40.4 38.7 - 51.1 % [facility] ACCOUNT BILL MCV 94.2 80.0 - 98.0 fL [facility] ACCOUNT BILL MCH 31.9 26.7 - 33.6 pg [facility] ACCOUNT BILL MCHC 33.9 31.7 - 36.3 g/dL [facility] ACCOUNT BILL RDW 11.9 11.3 - 14.8 % [facility] ACCOUNT BILL Platelet Count 231 150 - 420 x10E9/L [facility] ACCOUNT BILL Comment:MPV (CS) 10.4 fL 7.8 -11.4 Granulocytes % 57.3 41.0 - 74.0 % [facility] ACCOUNT BILL Lymphocytes % 32.3 17.0 - 47.0 % [facility] ACCOUNT BILL Monocytes % 8.1 3.0 - 11.0 % [facility] ACCOUNT BILL Eosinophils % 1.6 0.0 - 7.0 % [facility] ACCOUNT BILL Basophils % 0.4 0.0 - 1.6 % [facility] ACCOUNT BILL Granulocytes Absolute 4.25 1.60 - 7.50 x10E9/L [facility] ACCOUNT BILL Lymphocytes Absolute 2.39 1.00 - 4.40 x10E9/L [facility] ACCOUNT BILL Monocytes Absolute 0.60 0.15 - 1.00 x10E9/L [facility] ACCOUNT BILL Eosinophils Absolute 0.12 0.00 - 0.60 x10E9/L [facility] ACCOUNT BILL Basophils Absolute 0.03 0.00 - 0.13 x10E9/L [facility] ACCOUNT BILL Immature Granulocytes 0.3 0.0 - 1.0 % [facility] ACCOUNT BILL Blood BLOOD SPECIMEN / Unknown 01/04/2024 3:48 PM CDT 01/04/2024 Narrative Resulting Agency Comment Lab Testing performed at: [address] ?? [place] [phone] Robert Holman MD LAB - HEMATOLOGY OR DERABLES [facility] ACCOUNT BILL [address] [place] [address] * (ABNORMAL) COMPREHENSIVE METABOLIC PANEL (01/04/2024 3:48 PM CDT) Only the most recent of2 resultswithin the time period is included. Glucose 90 70 - 105 mg/dL [facility] ACCOUNT BILL BUN 16 5.3 - 18.7 mg/dL [facility] ACCOUNT BILL Creatinine 1.01 0.72 - 1.25 mg/dL [facility] ACCOUNT BILL eGFR by CKD-EPI >90 >=90 mL/min/1.7 3 m2 [facility] ACCOUNT BILL Sodium 142 136 - 145 mmol/L [facility] ACCOUNT BILL Potassium 4.4 3.5 - 5.1 mmol/L [facility] ACCOUNT BILL Chloride 110(H) 98 - 107 mmol/L [facility] ACCOUNT BILL CO2 23 22 - 29 mmol/L [facility] ACCOUNT BILL Calcium 9.4 8.4 - 10.4 mg/dL [facility] ACCOUNT BILL Protein Total 6.6 6.4 - 8.3 gm/dL [facility] ACCOUNT BILL Albumin 4.2 3.4 - 5.0 gm/dL [facility] ACCOUNT BILL Bilirubin Total 1.0 0.2 - 1.2 mg/dL [facility] ACCOUNT BILL Alkaline Phosphatase 72 40 - 150 U/L [facility] ACCOUNT BILL AST 17 5 - 34 U/L [facility] ACCOUNT BILL ALT 16 0 - 55 U/L [facility] ACCOUNT BILL Blood BLOOD SPECIMEN / Unknown 01/04/2024 3:48 PM CDT 01/04/2024 Narrative Resulting Agency Comment Lab Testing performed at: [address] ?? [place] [phone] Robert Holman MD LAB - CHEMISTRY ORD ERABLES [facility] ACCOUNT BILL [address] [place] [address] * LIPID PROFILE (01/04/2024 3:48 PM CDT) Only the most recent of2 resultswithin the time period is included. Pathologist [facility] Cholesterol 173 <200 mg/dL [facility] ACCOUNT BILL Triglycerides 101 <150 mg/dL [facility] ACCOUNT BILL HDL Cholesterol 42 >40 mg/dL [facility] ACCOUNT BILL VLDL Calculated 20 <=30 mg/dL [facility] ACCOUNT BILL LDL Calculated 111 <130 mg/dL [facility] ACCOUNT BILL Blood BLOOD SPECIMEN / Unknown 01/04/2024 3:48 PM CDT 01/04/2024 Narrative Resulting Agency Comment Lab Testing performed at: [facility] [address] [facility] ?? [place] [phone] Robert Holman MD LAB - CHEMISTRY ORD ERABLES [facility] ACCOUNT BILL [address] [place] [address] * HIV-1 HIV-2 ANTIBODY + HIV P24 AG PANEL (10/30/2022 10:57 AM CDT) [facility] HIV Screen 4th Generation w Reflex Non Reactive Non Reactive [facility] ACCOUNT BILL Comment: HIV Negative HIV-1/HIV-2 antibodies and HIV-1 p24 antigen were NOT detected. There is no laboratory evidence of HIV infection. FASTING Blood BLOOD SPECIMEN / Unknown 10/30/2022 10:57 AM CDT 10/30/2022 Narrative Resulting Agency Comment Lab Testing performed at: [address] ??[facility] [phone] Robert Holman MD LAB - CHEMISTRY ORD ERABLES [facility] ACCOUNT BILL [address] [place] [address] * TSH (10/30/2022 10:57 AM CDT) [facility] TSH 1.0655 0.35 - 4.94 uIU/mL [facility] ACCOUNT BILL Comment:FASTING Blood BLOOD SPECIMEN / Unknown 10/30/2022 10:57 AM CDT 10/30/2022 Narrative Resulting Agency Comment Lab Testing performed at: [address] ??[facility] [phone] Robert Holman MD LAB - CHEMISTRY ORD ERABLES [facility] ACCOUNT BILL [address] [place] [address] * HEPATITIS C ANTIBODY (10/30/2022 10:57 AM CDT) Hepatitis C Antibody Non Reactive Non Reactive [facility] ACCOUNT BILL Comment: Non Reactive - Antibodies to Hepatitis C virus (HCV) were no t detected, result does not exclude early acute HCV infection. FASTING Blood BLOOD SPECIMEN / Unknown 10/30/2022 10:57 AM CDT 10/30/2022 Narrative Resulting Agency Comment Lab Testing performed at: [address] ??[facility] [phone] Robert Holman MD LAB - CHEMISTRY ORD ERABLES Performing Organization Address City/[facility]/ZIP Co de Phone Number [facility] ACCOUNT BILL [address] [place] [address] * SARS-COV-2 (COVID-19) IN HOUSE (04/13/2020 11:56 AM MANAGER CODING) Pathologist [facility] COVID-19 PCR Not detected Not detected 04/15/2020 4:20 PM MANAGER CODING [facility] MICROBIOLOGY Microbiology SPECIMEN FROM NASOPHARYNGEAL STRUCTURE / Unknown Collection / Unknown 04/13/2020 11:56 AM MANAGER CODING 04/13/2020 11:56 AM MANAGER CODING Narrative [facility] MICRO[facility]OLOG[facility] - 04/15/2020 4:20 PM MANAGER CODING This nucleic acid amplification assay performance was validated by [facility] Microbiology [facility]. This test has been authorized by the Food and Drug administration (FDA)under an Emergency??Use Authorization (EUA). This test has been validated in accordance with the FDA's guidance document Policy for Diagnostic Testing in Laboratories Certified to perform High Complexity Testing under CLIA prior to Emergency Use Authorization for Coronavirus Disease-2019 during the Public Health Emergency issued on July 23, 2019. FDA independent review of this validation is pending. This test is only authorized for the duration of time the declaration that circumstances exist justifying the authorization of emergency use of in vitro diagnostic tests for detection of SARS-CoV-2 virus and/or diagnosis of COVID-19 infection under section 564(b)(1) of the Act, 21 U.S.C 360bbb-3 (b)(1), unless the authorization is terminated or revoked sooner. Fact Sheets for this EUA assay are available upon request. Eufemia Salcedo PAYROLL MASTER-[facility] LAB - MICR OBIOLOGY ORDERABLES [facility] MICROBIOLOGY [address] [place] [address], [facility] [phone] * LIPID PROFILE+GLUCOSE - POINT OF CARE (AMB) (03/04/2019 4:29 PM CDT) QC Verified Yes Yes Cholesterol POCT 140 200 mg/dl HDL POCT 44 mg/dL Triglycerides POCT 104 130 mg/dL LDL 75 130 mg/dl Non HDL Cholesterol POCT 96 145 mg/dL Total Cholesterol/HDL Ratio POCT 3.2 6.0 Glucose 87 70 - 126 mg/dL Blood BLOOD SPECIMEN / Unknown 03/04/2019 4:29 PM CDT Oneyda Marc MD LAB - POINT OF CARE ORDERABLES * STREP A SCREEN - POCT (IP) URGENT CARE (02/06/2018 12:48 PM CDT) Strep A Rapid POCT Positive Negative [facility] POCT TESTING QC Verified Yes Yes [facility] POC T TESTING Throat ENTIRE THROAT (SURFACE REGION OF NECK) / Unknown 02/06/2018 12:48 PM CDT [facility]limpia Lai [facility] - POINT OF CARE ORDERABLES Performing Organization Address City/[facility]/ZIP Co de Phone Number [facility] POCT TESTING [address] [place] [address], [place] * (ABNORMAL) STREP A SCREEN DIRECT W RFLX STREP A CULTURE (05/13/2013 1:30 PM MANAGER CODING) Only the most recent of3 resultswithin the time period is included. Strep A Rapid Positive(A ) Negative 05/13/2013 1:50 PM MANAGER CODING [facility] Throat ENTIRE THROAT (SURFACE REGION OF NECK) / Unknown Collection / Unknown 05/13/2013 1:30 PM MANAGER CODING 05/13/2013 1:43 PM MANAGER CODING Narrative [facility] - 05/13/2013 1:50 PM MANAGER CODING Results called to katlyn at [address] Oneyda Marc MD LAB - MICROBIOLOGY O RDERABLES [facility] [address] [address] * XR FOREARM 2 VW LEFT (03/13/2012 5:46 PM CDT) Anatomical Region Laterality Modality Upper Extremity Radiographic Andree ging 03/13/2012 7:21 PM CDT Impressions 03/13/2012 7:21 PM CDT 1. symmetric appearance of the right and left forearm in AP view with right forearm being symptomatic and left forearm being asymptomatic. There is no evidence for acute fracture. 2. Both wrists demonstrate widening of the scapholunate space. Clinical correlation is recommended. Narrative 03/13/2012 7:21 PM CDT Left forearm, 2 views 03/13/2012 Comparison is made with the right form done earlier. Both images demonstrate laterally directed bowing of the radius and ulna. The appearance is similar from both right and left. The widening of the scapholunate space is unchanged. There is no acute cortical fracture. There is no abnormal bone production or destruction. Procedure Note Jamie Delgadillo MD - 03/13/2012 Left forearm, 2 views 03/13/2012 Comparison is made with the right form done earlier. Both images demonstrate laterally directed bowing of the radius and ulna. The appearance is similar from both right and left. The widening of the scapholunate space is unchanged. There is no acute cortical fracture. There is no abnormal bone production or destruction. IMPRESSION 1. symmetric appearance of the right and left forearm in AP view with right forearm being symptomatic and left forearm being asymptomatic. There is no evidence for acute fracture. 2. Both wrists demonstrate widening of the scapholunate space. Clinical correlation is recommended. Joanie Londono MD DIAGNOSTIC IMAGING O RDERABLES * XR FOREARM 2 VW RIGHT (03/13/2012 4:25 PM CDT) Anatomical Region Laterality Modality Upper Extremity Radiographic Andree ging 03/13/2012 4:59 PM CDT Impressions 03/13/2012 4:59 PM CDT 1. Midshaft bowing deformities of the radius and ulna may represent bowing fracture. 2. Subluxation of the radiocapitellar joint space in AP view. 3. Widening of the scapholunate space. Recommend wrist series in further evaluation. Narrative 03/13/2012 4:59 PM CDT Right forearm, 2 views March 13, 2012 In the lateral view, there is no evidence for fracture, dislocation, or abnormal bone production or distraction. In the AP view, there appears to be a lateral directed apex bowing deformity of the radius and ulna. There is also lateral displacement of the radial ossification center relative to capitellum suggesting a subluxation. Widening of the scapholunate space is suggested. Procedure Note Jamie Delgadillo MD - 03/13/2012 Right forearm, 2 views March 13, 2012 In the lateral view, there is no evidence for fracture, dislocation, or abnormal bone production or distraction. In the AP view, there appears to be a lateral directed apex bowing deformity of the radius and ulna. There is also lateral displacement of the radial ossification center relative to capitellum suggesting a subluxation. Widening of the scapholunate space is suggested. IMPRESSION 1. Midshaft bowing deformities of the radius and ulna may represent bowing fracture. 2. Subluxation of the radiocapitellar joint space in AP view. 3. Widening of the scapholunate space. Recommend wrist series in further evaluation. Charissa Knowles MD DIAGNOSTIC IMAGING O RDERABLES * CULTURE MRSA (11/17/2011 11:43 AM CDT) Only the most recent of2 resultswithin the time period is included. Culture SEE BELOW 11/18/2011 7:12 PM CDT [facility] INTERFACES Comment: - Final - NO growth of Staphylococcus aureus (MRSA) Miscellaneous samples (specimen) SPECIMEN FROM NASAL FOSSAE / Unknown 11/17/2011 11:43 AM CDT 11/17/2011 12:11 PM CDT Samson Self MD LAB - MICROBIOLOGY O RDERABLES [facility] INTERFACES [address] [place] [address], [facility] * PATHOLOGY/CYTOLOGY REPORT ORDER (11/08/2011 10:59 AM CDT) Narrative Transcriptions Document, Scanned - 11/08/2011 10:59 AM CDT Scanned Document LAB - PATHOLOGY/CYTO LOGY ORDERABLES * GROSS + MICRO EXAM (STL) (11/03/2011 7:28 PM CDT) Case Report Surgical Pathology Report ? Case: [id number] ? -------- Authorizing Provider: ??Samson Self MD ?Ordering Provider: ?? Samson Self MD ? Ordering Location: ? [facility] 4 N HEM/ONC ? Collected: ? 11/03/2011 ??7:28 PM ? Pathologist: ? Karlo Andino MD ? Received: ?11/04/2011 ??6:24 AM ?Signed Out: ?11/06/2011 ??7:57 PM (Final) ? Specimen: ?Appendix ? 11/06/2011 7:57 PM [facility] Final Diagnosis DIAGNOSIS: APPENDIX, APPENDECTOMY: - PERFORATED ACUTE APPENDICITIS AND PERIAPPENDICITIS. - FECALITH. 11/06/2011 7:57 PM [facility] Clinical History The patient is a 5-year-old boy with appendicitis who underwent laparoscopic appendectomy. 11/06/2011 7:57 PM [facility] Gross Description Submitted fixed in formalin in one container for gross and microscopic examination labeled with the patient's name, Lizandro Wetzel, and appendix, are two portions of a vermiform appendix with attached mesoappendix. ??The specimen has an aggregate measurement of 8.5 x 1 x 0.8 cm. ??The external surface is bright-ponce and shaggy and partially surrounded by a yellow-white, fibrinopurulent exudate. ??The proximal, distal, and mesenteric aspect of the proximal portion of the specimen are stapled. ??The proximal margin of the distal portion of the specimen is also stapled. ??The avulsion/separatio n of the appendix occurs 4 cm distal to the proximal resection margin. ??A perforation is identified 4 cm distal to the proximal resection margin. ??The appendiceal lumen is occluded by a 1 cm in length x 0.4 cm in diameter brown-ponce fecalith located 2 cm proximal to the tip of the appendix. ??The appendiceal wall is 0.3 cm in thickness. ??The appendiceal lumen varies from 0.2 cm to 0.5 cm in diameter. ??The specimen is serially sectioned, and solar sales representative sections are submitted in cassettes A1 and A2. ??(CT/scs) 11/06/2011 7:57 PM T [facility] Microscopic Description 2 H&E. Sections show appendiceal wall, with a heavy mixed inflammatory infiltrate, consisting predominantly of neutrophils and lymphocytes. ??The infiltrate is found at the mucosal and serosal aspects, forming fibrinopurulent exudate in these areas. ??The muscularis propria is also heavily involved, and is discontinuous, completely replaced by inflammation in several areas. ??The included portions of mesoappendix are likewise heavily involved by the infiltrate. ??(DJF/vr) 11/06/2011 7:57 PM T [facility] Synoptic Report 11/06/2011 7:57 PM T [facility] Disclaimer This case has been personally reviewed and interpreted by the attending (teaching) pathologist. 11/06/2011 7:57 PM T [facility] Miscellaneous samples (specimen) ENTIRE APPENDIX / Unknown 11/03/2011 7:28 PM CDT 11/04/2011 6:24 AM CDT Samson Self MD LAB - PATHOLOGY/CYTO LOGY ORDERABLES [facility] [address] [place] [address] * US ABD FOR APPENDICITIS (11/03/2011 11:28 AM CDT) Anatomical Region Laterality Modality Abdomen Ultrasound 11/03/2011 11:4 0 AM CDT Impressions 11/03/2011 11:40 AM CDT 1. Ultrasound findings consistent with appendicitis and appendicolith. 2. free fluid in pelvis. 3. Echogenic debris within the bladder of uncertain etiology. Recommend clinical correlation for inflammatory process. Narrative 11/03/2011 11:40 AM CDT Ultrasound abdomen limited 11/03/2011 The appendix is fluid-filled and distended. Is 9 mm in diameter. An appendicolith is identified with which is 1.1 cm in length. This shadows posteriorly. Free fluid is in the pelvis. Incidentally noted is the presence of echogenic debris within the bladder. Procedure Note Jamie Delgadillo MD - 11/03/2011 Ultrasound abdomen limited 11/03/2011 The appendix is fluid-filled and distended. Is 9 mm in diameter. An appendicolith is identified with which is 1.1 cm in length. This shadows posteriorly. Free fluid is in the pelvis. Incidentally noted is the presence of echogenic debris within the bladder. IMPRESSION 1. Ultrasound findings consistent with appendicitis and appendicolith. 2. free fluid in pelvis. 3. Echogenic debris within the bladder of uncertain etiology. Recommend clinical correlation for inflammatory process. Юлия De La Paz PAYROLL MASTER-FOOD DEHYDRATOR OPERATOR US ORDERABLES * CULTURE STREP GROUP A (11/02/2011 1:17 PM CDT) Only the most recent of2 resultswithin the time period is included. Culture SEE BELOW 11/05/2011 11:37 AM CDT [facility] INTERFACES Comment: - Final - Growth of BETA HEMOLYTIC STREP GP A ??Susceptibility testing of ? penicillin, and other ? beta-lactam antibiotics, ??and vancomycin is not ? necessary for ? beta-hemolytic streptococci ? Group A ??(S.pyogenes) and Group B ? (S.agalactiae) because ? resistant strains have ??not been recognized. ??If patient is penicillin ? allergic, contact the ? microbiology ??laboratory for susceptibility ? testing. Miscellaneous samples (specimen) ENTIRE THROAT (SURFACE REGION OF NECK) / Unknown 11/02/2011 1:17 PM CDT 11/02/2011 1:22 PM CDT Nilda Almeida MD LAB - MICROBIOLOGY O RDERABLES [facility] INTERFACES [address] [facility] [place] [address], [facility] * (ABNORMAL) DIFFERENTIAL MANUAL (11/02/2011 12:52 PM CDT) WBC Auto 25.4 X(10)9/L 11/02/2011 1:35 PM CDT [facility] Neutrophil % Manual 77(H) 24 - 66 % 11/02/2011 1:35 PM CDT [facility] Lymphocytes % Manual 4(L) 22 - 61 % 11/02/2011 1:35 PM CDT [facility] Monocytes % Manual 5 3 - 15 % 2011 1:35 PM CDT [facility] Atypical Lymphocyte % Manual 1 % 11/02/2011 1:35 PM CDT [facility] Band % Manual 12(H) 0 - 11 % 11/02/2011 1:35 PM CDT [facility] Myelocytes % Manual 1 % 11/02/2011 1:35 PM CDT [facility] Cells Counted 100 # cells 11/02/2011 1:35 PM CDT [facility] Platelet Estimation Normal 11/02/2011 1:35 PM CDT [facility] Anisocytosis Slight 11/02/2011 1:35 PM CDT [facility] Poikilocytosis Slight 11/02/2011 1:35 PM CDT [facility] Toxic Granulation Moderate 012 1:35 PM CDT [facility] Dohle Bodies Occasional 11/02/2011 1:35 PM CDT [facility] Blood specimen (specimen) BLOOD SPECIMEN / Unknown 11/02/2011 12:52 PM CDT 11/02/2011 1:00 PM CDT Charissa Knowles MD LAB - HEMATOLOGY ORD ERABLES [facility] [address] [place] [address] * XR FINGER(S) LEFT (10/08/2008 4:17 PM CDT) Anatomical Region Laterality Modality Upper Extremity, Wrist / Hand Ra diographic Imaging 10/08/2008 7:57 PM CDT Narrative 10/08/2008 8:37 PM CDT THREE VIEWS LEFT FOURTH FINGER ?10/08/2008 CLINICAL INDICATION: Left fourth finger pain FINDINGS: There is a Salter-Arteaga II fracture involving the base of the proximal phalanx of the fourth finger. There is soft tissue swelling about the fourth finger. There are no other bony abnormalities. Procedure Note Nadine Ambrose MD - 10/08/2008 THREE VIEWS LEFT FOURTH FINGER 10/08/2008 CLINICAL INDICATION: Left fourth finger pain FINDINGS: There is a Salter-Arteaga II fracture involving the base of the proximal phalanx of the fourth finger. There is soft tissue swelling about the fourth finger. There are no other bony abnormalities. 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 [address] [place] [address] PCP - Attributed-[facility] 12/23/22 Oneyda Marc MD [address] [facility] [address] [place] [address] Pediatrics 10/03/21
== END 2024-06-13 16:35 | disposition home or self-care (01) ==
PROVIDERS: Emergency Provider Registered Nurse
DX: K52.9 Noninfective gastroenteritis and colitis, unspecified (principal); E86.0 Dehydration; Z20.822 Contact with and (suspected) exposure to COVID-19
CPT/HCPCS: 36415; 74177; 80053; 80307; 81001; 82550; 83690; 85025; 87637; 93005; 96361; 96372; 96374; 96375; 99284; J0500; J2405; J7030; Q9967